=== PATIENT | female | born 1985 | race American Indian/Alaskan Native ===

== ENCOUNTER 2016-05-09 08:53 | Emergency (ER) | payer OTHER, MEDICAID ==
[2016-05-09 10:26] VITALS: BP 129/80
--- NOTE | 2016-05-09 11:20 | Emergency Department Report ---
Entered by RENATO DYKES, acting as scribe for MATHEW CIFUENTES PA. ED Neck Pain/Injury HPI - General Chief Complaint: Neck Pain/Injury Stated Complaint: NECK/BACK/SHOULDER PAIN Time Seen by Provider: 05/09/16 10:45 Mode of arrival: Ambulatory Limitations: No Limitations - History of Present Illness Initial Comments: 30 y/o female with no significant PMHx, presents to the ED c/o atraumatic left side neck pain beginning 3 days ago. The patient denies any heavy lifting, trauma, or recent falls. The neck pain is 9 out of 10 severity, sharp and constant in quality with movement, and radiates down the left upper extremity. The symptoms are aggravated by movement, with no alleviating factors. Associated symptom of left shoulder pain, but she denies numbness, tingling, weakness, nausea, vomiting, fever, abdominal pain, chest pain, and SOB. MD Complaint: neck pain (left sided) -: days(s) (3 days ago, after waking up) Place: home Radiation: left shoulder, left upper extremity Severity: constant Severity scale (0 -10): 9 Quality: sharp (with movement) Consistency: constant Improves With: none Worsens With: movement of extremity, movement of neck Context: unknown (patient denies fall, trauma, and any heavy lifting) Associated Symptoms: denies: headache, fever Treatments Prior to Arrival: none - Related Data Previous Rx's Medication Instructions Recorded Last Taken Type Naproxen [Naprosyn] 500 mg PO BID #30 tablet 05/09/16 Unknown Rx methOCARBAMOL [Robaxin TAB] 500 mg PO BID #20 tab 05/09/16 Unknown Rx Allergies Allergy/AdvReac Type Severity Reaction Status Date / Time No Known Allergies Allergy Unverified 05/09/16 10:26 ED Review of Systems Comment: All other systems reviewed and negative Constitutional: denies: fever Respiratory: denies: shortness of breath Cardiovascular: denies: chest pain Gastrointestinal: denies: abdominal pain, nausea, vomiting Musculoskeletal: back pain (left sided neck pain, left sided shoulder pain, radiating down the left arm) Neurological: denies: headache, weakness, numbness, other (tingling) ED Past Medical Hx - Past Medical History Previous Medical History?: No - Surgical History Past Surgical History?: No - Social History Smoking Status: Never Smoker Substance Use Type: None - Medications Home Medications: Home Medications Medication Instructions Recorded Confirmed Last Taken Type Naproxen [Naprosyn] 500 mg PO BID #30 tablet 05/09/16 Unknown Rx methOCARBAMOL [Robaxin TAB] 500 mg PO BID #20 tab 05/09/16 Unknown Rx ED Physical Exam - General Limitations: No Limitations - Back Exam Back exam: Present: normal inspection, full ROM, tenderness (left trapezius muscle group), muscle spasm (left trapezius muscle group), paraspinal tenderness (left side cervical paraspinal tenderness to palpation). Absent: vertebral tenderness - Expanded Back Exam Expanded Back exam: Negative Straight Leg Raising: Left, Right - Other Other exam information: GENERAL: The patient is well-developed and well-nourished. Patient is in NAD. HEAD: Normocephalic. Atraumatic. CHEST/LUNGS: Clear to auscultation throughout. HEART/CARDIOVASCULAR: Regular rate and rhythm. No murmurs, rubs or gallops. ABDOMEN: Abdomen is soft, nontender. Bowel sounds normoactive. No guarding or rebound tenderness. EXTREMITIES: Full range of motion. Peripheral pulses intact. Capillary refill less than 2 seconds. LEFT UPPER EXTREMITY: Full range of motion. No tenderness to palpation over the shoulder joint. Normal sensation. 2 point discretion intact. Peripheral pulses intact. Capillary refill less than 2 seconds. NEURO: Alert and oriented x 3. Normal gait. Symmetrical strength and sensation. ED Course Vital Signs 05/09/16 10:22 Temperature 98.8 F Pulse Rate 70 Respiratory 18 Rate Blood Pressure 129/80 O2 Sat by Pulse 100 Oximetry ED Medical Decision Making - Lab Data Vital Signs 05/09/16 10:22 Temperature 98.8 F Pulse Rate 70 Respiratory 18 Rate Blood Pressure 129/80 O2 Sat by Pulse 100 Oximetry - Medical Decision Making 30 y/o female presents complaining of atraumatic left side neck pain beginning 3 days ago. Explained to patient that imaging is not necessary following exam and Hx. Patient is in no acute distress at this time. She will be discharged home with Robaxin and Naprosyn, and is encouraged to follow up with a primary care provider. She is encouraged to return to the emergency room for any worsening symptoms. ED Disposition Clinical Impression: Cervical strain Qualifiers: Encounter type: initial encounter Qualified Code(s): S16.1XXA - Strain of muscle, fascia and tendon at neck level, initial encounter Disposition: DISCHARGED TO HOME OR SELFCARE Is pt being admited?: No Does the pt Need Aspirin: No Condition: Stable Instructions: Muscle Strain (ED) Additional Instructions: Follow-up with primary care provider. Return to the emergency department if symptoms worsen. Prescriptions: methOCARBAMOL [Robaxin TAB] 500 mg PO BID #20 tab Naproxen [Naprosyn] 500 mg PO BID #30 tablet Referrals: PRIMARY CAREMD [Primary Care Provider] - 3-5 Days LESLI AMARO MD [Staff Physician] - 3-5 Days Forms: Work/School Release Form(ED) Time of Disposition: 11:16 This documentation as recorded by the JANIA oconnor GRACE,accurately reflects the service I personally performed and the decisions made by VANE rodriguez NATASHA, PA.
== END 2016-05-09 11:34 | disposition home or self-care (01) ==
LOC: ED 08:53
DX: S16.1XXA Strain of muscle, fascia and tendon at neck level, initial encounter (principal); M25.512 Pain in left shoulder; X58.XXXA Exposure to other specified factors, initial encounter; Y93.9 Activity, unspecified; Y99.9 Unspecified external cause status; Y92.009 Unspecified place in unspecified non-institutional (private) residence as the place of occurrence of the external cause
CPT/HCPCS: 99282

== ENCOUNTER 2017-06-13 16:35 | Emergency (ER) | payer MEDICAID, OTHER ==
[2017-06-13 16:43] VITALS: BP 141/87
== END 2017-06-13 20:51 ==
LOC: ED 16:35
DX: R07.9 Chest pain, unspecified (principal); R05 Cough; J02.9 Acute pharyngitis, unspecified; Z53.21 Procedure and treatment not carried out due to patient leaving prior to being seen by health care provider